=== PATIENT | male | born 1955 | race Caucasian/White ===

== ENCOUNTER 2016-10-17 12:19 | Day surgery (SDC) | payer BC ==
[2016-10-17] VITALS (15 sets, daily range): BP systolic 136–161; BP diastolic 76–94; PULSE 50–66; RESP 12–40; Ht 167.6 cm; Wt 88.0 kg
[~2016-10-17] VITALS: Ht 167.6 cm; Wt 88.0 kg
--- NOTE | 2016-10-17 12:02 | HPN ---
Date/Time of Note Date/Time of Note DATE: 10/17/16 TIME: 12:02 Interval H&P Admission Note Pt. seen H&P reviewed: No system changes GIFTY GARCIA MD Oct 17, 2016 12:02
[2016-10-17] MEDS ORDERED: NARA2.5T PO (13:06)
[2016-10-17] MEDS ORDERED: FLUT9.9S NASAL (13:06)
[2016-10-17] MEDS ORDERED: BUTA1CAP38 PO (13:06)
[2016-10-17] MEDS ORDERED: SUMA100T4 PO (13:06)
[2016-10-17] MEDS ORDERED: VERA240C2 PO (13:06)
[2016-10-17] MEDS ORDERED: ZOLP10TA PO (13:06)
[2016-10-17] MEDS ORDERED: NIAC500T81 PO (13:06)
[2016-10-17] MEDS ORDERED: HYDR-905 PO (13:06)
[2016-10-17] MEDS ORDERED: GABA-526 PO (13:06)
[2016-10-17] MEDS ORDERED: CARI350T PO (13:06)
[2016-10-17] MEDS ORDERED: ASPI81TA3 PO (13:06)
[2016-10-17] MEDS ORDERED: NEBI5TAB9 PO (13:06)
[2016-10-17] MEDS ORDERED: CRES10 PO (13:06)
[2016-10-17] MEDS ORDERED: PRAM0.2539 PO (13:06)
[2016-10-17] MEDS ORDERED: LOSA100T7 PO (13:06)
[2016-10-17] MEDS ORDERED: LORA1TAB PO (13:06)
[2016-10-17] MEDS ORDERED: LACTATED RINGER'S 1,000 ML IV SCH (13:30)
[2016-10-17] MEDS ORDERED: ROPIVACAINE 0.5 % 30 ML VIAL ONE (15:38)
[2016-10-17] MEDS ORDERED: MIDAZOLAM 1 MG/ML 2 ML INJ ONE (15:38)
[2016-10-17] MEDS ORDERED: FENTAnyl 50 MCG/ML VIAL ONE (15:45)
[2016-10-17] MEDS ORDERED: POLYMYXIN/BACITRACIN 1L IRRIG ONE (17:14)
[2016-10-17] MEDS ORDERED: PROPOFOL 100 ML ONE (17:23)
[2016-10-17] MEDS ORDERED: ONDANSETRON 4 MG INJ ONE (17:33)
[2016-10-17] MEDS ORDERED: LIDOCAINE 2% (SDV) 5 ML INJ ONE (17:33)
[2016-10-17] MEDS ORDERED: CEFAZOLIN 1 GM INJ ONE (17:33)
[2016-10-17] MEDS ORDERED: FAMOTIDINE 20 MG INJ ONE (17:33)
[2016-10-17] MEDS ORDERED: MEPERIDINE 25 MG INJ IV PRN (18:00)
[2016-10-17] MEDS ORDERED: PROCHLORPERAZINE 10 MG INJ IV PRN (18:00)
[2016-10-17] MEDS ORDERED: DIPHENHYDRAMINE 50 MG INJ IV PRN (18:00)
[2016-10-17] MEDS ORDERED: OXYCODONE/ACETAMINOPHEN (5/325) TAB PO PRN (18:00)
[2016-10-17] MEDS ORDERED: FENTAnyl 50 MCG/ML VIAL IV PRN (18:00)
[2016-10-17] MEDS ORDERED: HYDROmorphONE (0.2 MG/ML) 10ML SYG IV PRN (18:00)
[2016-10-17] MEDS ORDERED: ONDANSETRON 4 MG INJ IV PRN (18:00)
[2016-10-17] MEDS ORDERED: ROCURONIUM 50 MG INJ ONE (18:23)
[2016-10-17] MEDS ORDERED: DEXAMETHASONE 4 MG/ML 1 ML INJ ONE (18:23)
[2016-10-17] MEDS ORDERED: SUCCINYLCHOLINE CHLORIDE 100 MG/5 ML SYG IV ONE (18:23)
[2016-10-17] MEDS ORDERED: PROPOFOL 20 ML ONE (18:23)
[2016-10-17] MEDS ORDERED: NEOMYC/POLYMYX/BACIT 30 GM OINT ONE (18:34)
[2016-10-17] MEDS ORDERED: HYDROmorphONE 2 MG/ML SYG ONE (18:35)
--- NOTE | 2016-10-17 19:07 | OPR ---
Date/Time of Note Date/Time of Note DATE: 10/17/16 TIME: 19:06 Operative Report Preoperative Diagnosis Right foot Hallux Rigidus Grade 3 Postoperative Diagnosis Right foot Hallux Rigidus Grade 3 Operation/Procedure Performed Right foot 1st MTPJ cheilectomy Right foot placement of interpositional implant into the Right first Metatarsal Head Surgeon: GIFTY GARCIA MD case assistant: KHADIJAH GARCIA MD Anesthesia: general, other (ankle block) Estimated Blood Loss: minimal Grafts/Implants 1 size 10 Cartiva implant into the right first MT head Complications: None GIFTY GARCIA MD Oct 17, 2016 19:07
--- NOTE | 2016-10-17 19:09 | OPR ---
Date/Time of Note Date/Time of Note DATE: 10/17/16 TIME: 19:09 Operative Report Preoperative Diagnosis Right foot Hallux Rigidus Grade 3 Postoperative Diagnosis Right foot Hallux Rigidus Grade 3 Operation Performed Right foot 1st MTPJ cheilectomy Right foot placement of interpositional implant into the Right first Metatarsal Head Surgeon: GIFTY GARCIA MD library services assistant: KHADIJAH GARCIA MD Anesthesia: general, other (ankle block) Anesthesiologist: BROOK SANCHEZ MD Tourniquet Time: 38 minutes at 250 mmHg Estimated Blood Loss: minimal Grafts/Implants 1 size 10 Cartiva implant into the right first MT head Complications: None Pt Condition Post Procedure: stable Disposition: PACU Indications Patient is a 61-year-old gentleman with a ongoing history of hallux rigidus grade 3 who has ongoing pain and limited range of motion at his right first MTP joint. We have tried nonoperative management including cortisone injections as well as physical therapy however patient continued has pain. Patient would like to proceed with Cartiva implant. He is aware that this device is new and has only 5 years of data which does show improved pain and range of motion. He is aware that he may require a second surgery in the future such as a fusion to treat the pain if the pain does not resolve with the surgery. Operative\Procedure Findings Risk note: Patient was met in the risks and benefits of surgery patient [place] language, including but not limited to infection, bleeding, risk of injury to blood vessels and nerves ligaments or tendons; loss of limb, loss of life and need for future surgery. Patient acknowledges risk by signing the surgical consent form. Procedure Description Patient was met in the preoperative holding area and the correct operative site was confirmed with both patient and with consent. Correct operative site was marked. Patient was then given a regional block anesthesia and then brought to the operative theater placed supine on the operative table. Patient was then given preoperative antibiotics. Patient was then prepped and draped in the normal sterile fashion and a timeout was taken. All parties in the room agreed is correct patient, extremity and patient. Esmarch was brought up to 250 mmHg and a dorsal medial incision was made over the first MTP joint exposing the capsule with care to avoid any neurovascular injury. EHL tendon was protected during the approach and the joint was then entered. Extensive dorsal osteophytes were seen and a loose dorsal osteophyte was found over the proximal phalanx and removed. There was a gentle release of the soft tissues of the lateral medial compartment to ensure enough exposure for allow implant implementation of the device. There was an initial resection of osteophytes the proximal phalanx and metatarsal head with care taken to avoid removing too much in order to ensure there is adequate dorsal bone stock preservation. Metatarsal head was identified and a large loss of chondral denudation was found on the dorsal aspect of the metatarsal head. Using the concave end of the placar to ensure it was centered in the medial lateral plane and create a perpendicular angle the metatarsal head placar are was positioned centrally over the worst area of arthritic involvement on the metatarsal head. The guidepin was drilled in central of the metatarsal head and identified to be in the middle of the metatarsal head both centrally on the dorsal and plantar position and the medial lateral position on the fluoroscopy view of AP and lateral. The guidepin was left in and using a cannulated drill bit metatarsal head and cavity was then created and the drill site was flushed out and all debris was removed from the metatarsal head. Implant was prepared on the back table using a size Cartiva. The implant was then inserted with the introducer tube at the implant site perpendicular to the metatarsal head. The implant sat proud of approximately 1.5-2.5 mm the wound was irrigated thoroughly and the dorsal aspect of the metatarsal head was smoothed down with a oscillating rasp and wound was irrigated thoroughly again. The capsule was then closed with 3-0 Monocryl followed by sub-dermal stitches with 3-0 Monocryl and skin closure with 4-0 nylon in a vertical mattress fashion. The wounds were dressed with Xeroform triple antibiotic ointment 4 x 4's ABDs and placed in a well-padded foot strapping wrap. Patient was then placed interstitial shoe. At the end of the case all sponge needle counts were correct. Patient by the PACU in stable condition and the toes are finally warm and well-perfused. Systems Analyst Developer note: The use of an orthopedic surgical garment assembler was necessary for this case due to the complex nature of the case. Since surgery to help hold the foot in a properly position during drilling and reaming and without the use of an orthopedic surgical scrub technician case to consider longer more complex. Thus the case should be compensated accordingly for an music assistant. GIFTY GARCIA MD Oct 17, 2016 19:09
[2016-10-17] MEDS ORDERED: morphine 10 MG INJ IV PRN (19:30)
[2016-10-17] MEDS ORDERED: hydrALAzine 20 MG INJ IV PRN (19:30)
[2016-10-17] MEDS ORDERED: morphine 4 MG/ML VIAL IV PRN (19:30)
[2016-10-17] MEDS ORDERED: KETOROLAC 30 MG INJ IV PRN (19:30)
--- NOTE | 2016-10-18 18:18 | RADRPT ---
PROCEDURE: Intraoperative imaging of the right foot with fluoroscopy. CLINICAL INDICATION: Right foot pain. Intraoperative. TECHNIQUE: 10 images of the right foot were obtained in the operating room with an image intensifi er. No radiologist was in attendance. Fluoroscopy time is 22 seconds. COMPARISON: No prior study is available for comparison. FINDINGS: Images demonstrate a single pin transfixing the right first toe and first metatarsal. IMPRESSION: 1. Intraoperative imaging of the right foot. RPTAT: QQ .Rome Mathews MD, Date Time Electronically viewed and signed by .Rome Mathews MD, on 10/18/2016 18:17 .R/
== END 2016-10-17 20:28 | disposition home or self-care (01) ==
LOC: SDS 12:19
PROVIDERS: ATTEND Orthopaedic Surgery
DX: M20.21 Hallux rigidus, right foot (principal); I10 Essential (primary) hypertension; E78.5 Hyperlipidemia, unspecified
CPT/HCPCS: 28291; 73630; J0690; J1100; J1170; J2250; J2405; J2795; J3010; J7999

== ENCOUNTER 2017-12-18 11:10 | Day surgery (SDC) | END 2017-12-18 19:10 | disposition home or self-care (01) ==